=== PATIENT | female | born 1970 | race American Indian/Alaskan Native ===

== ENCOUNTER 2017-05-07 09:53 | Emergency (ER) | payer OTHER ==
[2017-05-07] MEDS ORDERED: MOTRIN PO ONE (13:57)
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
--- NOTE | 2017-05-07 15:45 | XRay Report ---
RIGHT SHOULDER, 3 VIEWS: HISTORY: right shoulder pain. Normal bone mineralization. No acute osseous injury or joint pathology is detected. The soft tissues are unremarkable. IMPRESSION: Right shoulder within normal limits.
[2017-05-07 16:07] VITALS: BP 128/82
== END 2017-05-07 16:05 | disposition home or self-care (01) ==
LOC: ED 09:53
DX: S46.911A Strain of unspecified muscle, fascia and tendon at shoulder and upper arm level, right arm, initial encounter (principal); S13.4XXA Sprain of ligaments of cervical spine, initial encounter; V49.49XA Driver injured in collision with other motor vehicles in traffic accident, initial encounter; Y93.89 Activity, other specified; Y92.89 Other specified places as the place of occurrence of the external cause; Y99.8 Other external cause status

== ENCOUNTER 2020-06-09 14:27 | Emergency (ER) | payer OTHER ==
--- NOTE | 2020-06-09 14:47 | Event Note ---
ED Screening Note ED Screening Note: Patient is a 49-year-old female presents emergency room complaints of chest tightness and shortness of breath that began a couple days ago She is currently hyperventilating and holding her chest She states that she has a mild cough Denies any fever, nausea, vomiting, diarrhea, leg swelling No sick contacts or recent travel Only family cardiac history as her father had an [place] in his 70s No past medical history No allergies to medicines This initial assessment/diagnostic orders/clinical plan/treatment(s) is/are subject to change based on patients health status, clinical progression and re- assessment by fellow clinical providers in the ED. Further treatment and workup at subsequent clinical providers discretion. Patient/guardian urged not to elope from the ED as their condition may be serious if not clinically assessed and managed. Initial orders include: Chest pain protocol
[2020-06-09 15:07] LABS: Basophils # (Auto) 0.1 K/mm3 (0.0-0.1); Basophils % (Auto) 0.9 % (0.0-1.8); Eosinophils % (Auto) 0.2 % (0.0-4.3); Hematocrit 36.1 % (30.3-42.9); Hemoglobin 12.4 gm/dl (10.1-14.3); Lymphocytes # (Auto) 1.9 K/mm3 (1.2-5.4); Lymphocytes % (Auto) 30.8 % (13.4-35.0); Mean Corpuscular HGB Conc 34 % (30-34); Mean Corpuscular Volume 78 fl (79-97); Monocytes # (Auto) 0.6 K/mm3 (0.0-0.8); Monocytes % (Auto) 9.6 % (0.0-7.3); Platelet Count 243 K/mm3 (140-440); Red Blood Count 4.63 M/mm3 (3.65-5.03); Red Cell Distribution Width 12.2 % (13.2-15.2)
[2020-06-09 15:16] LABS: INR 0.94 (0.87-1.13)
[2020-06-09 15:17] LABS: Partial Thromboplastin Time 33.7 Sec. (24.2-36.6)
[2020-06-09 15:24] LABS: Alanine Aminotransferase 20 units/L (7-56); Blood Urea Nitrogen 7 mg/dL (7-17); Calcium 8.9 mg/dL (8.4-10.2); Hemolysis Index 8
[2020-06-09 15:33] LABS: BUN/Creatinine Ratio 12
--- NOTE | 2020-06-09 15:45 | XRay Report ---
CHEST 2 VIEWS INDICATION / CLINICAL INFORMATION: Chest Pain. COMPARISON: None available. FINDINGS: SUPPORT DEVICES: None. HEART / MEDIASTINUM: No significant abnormality. LUNGS / PLEURA: Mild increased interstitial prominence within the left lower lung. Mild increased pul monary vasculature. No pneumothorax. ADDITIONAL FINDINGS: No significant additional findings. IMPRESSION: 1. Mild increased interstitial prominence within the left lower lung could represent developing infil trate. Signer Name: Sanjay Wan MD Signed: 06/09/2020 3:40 PM Workstation Name: [id number]
--- NOTE | 2020-06-09 17:18 | Emergency Department Report ---
ED Chest Pain HPI - General Chief Complaint: Chest Pain Stated Complaint: NECK/BACK CHEST PAIN PUI?: Yes Time Seen by Provider: 06/09/20 14:45 Source: patient Mode of arrival: Ambulatory Limitations: No Limitations - History of Present Illness Initial Comments: Chief complaint: "I thought I had a really bad chest cold." HPI: This is a 49-year-old female without significant past medical history who presents with symptoms for the past week. Patient had cough subjective fever chills. She had headache and body aches. For the past 2 days she has severe chest pain with cough and shortness of breath. Nonproductive cough. Sharp central pain radiating to the back reproducible with inspiration and cough. Patient also has mild headache and neck pain. Patient works as a intermodal truck driver. No known sick contacts. Patient lives with her brother. Complaint: chest pain -: Gradual, days(s) (Worse over the last 2 days), week(s) (1) Onset: during rest Pain Location: substernal Pain Radiation: back Severity: severe Severity scale (0 -10): 9 Quality: sharp Consistency: constant Improves With: nothing Worsens With: inspiration, other (cough) Other Symptoms: cough, other (Subjective fever chills body ache headache neck pain shortness of breath) - Related Data Previous Rx's Medication Instructions Recorded Last Taken Type Cyclobenzaprine [Flexeril] 10 mg PO QHS PRN #7 tablet 05/07/17 Unknown Rx Ibuprofen [Motrin] 600 mg PO Q8H PRN #30 tablet 05/07/17 Unknown Rx Azithromycin [Zithromax TAB] 250 mg PO QDAY 4 Days #4 tablet 06/09/20 Unknown Rx Ibuprofen [Motrin 400 MG tab] 400 mg PO TID 4 Days #12 tablet 06/09/20 Unknown Rx Allergies Allergy/AdvReac Type Severity Reaction Status Date / Time No Known Allergies Allergy Verified 06/09/20 14:39 Heart Score - HEART Score History: Slightly suspicious EKG: Normal Age: < 45 Risk factors: No known risk factors Troponin: < normal limit HEART Score: 0 ED Review of Systems ROS: Stated complaint: NECK/BACK CHEST PAIN Other details as noted in HPI Comment: All other systems reviewed and negative Constitutional: chills, fever, malaise Respiratory: shortness of breath. denies: cough Cardiovascular: chest pain Gastrointestinal: denies: abdominal pain, nausea, vomiting Musculoskeletal: back pain ED Past Medical Hx - Past Medical History Previous Medical History?: No - Surgical History Past Surgical History?: No Additional Surgical History: hysterectomy - Social History Smoking Status: Never Smoker Substance Use Type: Non Opiate Pain - Medications Home Medications: Home Medications Medication Instructions Recorded Confirmed Last Taken Type Cyclobenzaprine [Flexeril] 10 mg PO QHS PRN #7 tablet 05/07/17 Unknown Rx Ibuprofen [Motrin] 600 mg PO Q8H PRN #30 tablet 05/07/17 Unknown Rx Azithromycin [Zithromax TAB] 250 mg PO QDAY 4 Days #4 tablet 06/09/20 Unknown Rx Ibuprofen [Motrin 400 MG tab] 400 mg PO TID 4 Days #12 tablet 06/09/20 Unknown Rx ED Physical Exam - General Limitations: No Limitations General appearance: alert, in no apparent distress, anxious, other (anxious, speaking full word sentences, appears slightly uncomfortable) - Head Head exam: Present: atraumatic, normocephalic - Eye Eye exam: Present: normal appearance - ENT ENT exam: Present: mucous membranes moist - Neck Neck exam: Present: normal inspection, full ROM - Respiratory Respiratory exam: Present: normal lung sounds bilaterally. Absent: respiratory distress, wheezes, rales, rhonchi - Cardiovascular Cardiovascular Exam: Present: normal rhythm, tachycardia, normal heart sounds. Absent: systolic murmur, diastolic murmur, rubs, gallop - GI/Abdominal GI/Abdominal exam: Present: soft, normal bowel sounds. Absent: distended, tenderness, guarding, rebound - Extremities Exam Extremities exam: Present: normal inspection - Neurological Exam Neurological exam: Present: alert, oriented X3 - Psychiatric Psychiatric exam: Present: normal affect, anxious - Skin Skin exam: Present: warm, dry, intact, normal color. Absent: rash ED Course Vital Signs 06/09/20 06/09/20 06/09/20 14:44 18:39 18:43 Temperature 99.1 F 99.2 F Pulse Rate 112 H 118 H Respiratory 26 H 18 22 Rate Blood Pressure 129/94 Blood Pressure 132/92 [Left] O2 Sat by Pulse 96 96 Oximetry ED Medical Decision Making - Lab Data Result diagrams: 06/09/20 14:47 06/09/20 14:47 - EKG Data -: EKG Interpreted by Me EKG shows normal: sinus rhythm, axis, intervals, QRS complexes, ST-T waves Rate: normal - EKG Data 06/09/20 17:18 EKG obtained EKG interpreted by me Normal sinus rhythm normal rate normal axis normal intervals no ST elevation no ST-T signs of ischemia normal EKG - Radiology Data Radiology results: report reviewed Chest radiograph: Impression mild increased interstitial prominence within the left lower lobe could represent developing infiltrate CTA CHEST WITH CONTRAST INDICATION / CLINICAL INFORMATION: CP, SOB, elevated d-dimer. TECHNIQUE: Axial CT images were obtained through the chest after injection of IV contrast. 3 plane MIP and/or 3D reconstructions were produced. All CT scans at this location are performed using CT dose reduction for ALARA by means of automated exposure control. COMPARISON: Chest radiograph from the same date. FINDINGS: PULMONARY ARTERIES: No pulmonary emboli. THORACIC AORTA: No significant abnormality. HEART: No significant abnormality. CORONARY ARTERIES: No significant calcification. MEDIASTINUM / LIZA: No significant abnormality. PLEURA: No pleural effusion. No pneumothorax. LUNGS: Patchy, predominantly peripheral groundglass density changes throughout the lungs are concerning for an infectious process. There is airspace consolidation within the lung bases. ADDITIONAL FINDINGS: None. UPPER ABDOMEN: There is a 1.9 cm hypodensity within the right hepatic lobe. SKELETAL STRUCTURES: No significant osseous abnormality. IMPRESSION: 1. No CT evidence for pulmonary embolism. 2. Diffuse patchy groundglass density changes are concerning for a viral or atypical infectious process. 3. Indeterminate 1.9 cm right hepatic lobe hypodensity likely reflects a cyst. If there is clinical concern, multiphase CT or MRI could be performed. - Medical Decision Making Constellation of symptoms: Fever chills headache cough chest pain body aches suspicious for COVID-19 infection. No hypoxia or significant work of breathing. With elevated D-dimer and tachycardia pleuritic chest pain PE ruled out with CT angio chest: Chest radiograph and CTA revealed pneumonia. Patient is currently appropriate for discharge. Normal oxygen saturation. She understands return precautions. She understands to obtained outpatient COVID-19 testing. She understands to quarantine self isolate for the next 7 days. Critical care attestation.: If time is entered above; I have spent that time in minutes in the direct care of this critically ill patient, excluding procedure time. ED Disposition Clinical Impression: Suspected COVID-19 virus infection, Community acquired pneumonia Disposition: DC- TO HOME OR SELFCARE Is pt being admited?: No Does the pt Need Aspirin: No Condition: Stable Instructions: Bacterial Pneumonia (ED), COVID-19 Prescriptions: Ibuprofen [Motrin 400 MG tab] 400 mg PO TID 4 Days #12 tablet Azithromycin [Zithromax TAB] 250 mg PO QDAY 4 Days #4 tablet Referrals: INES BERNABE MD [Staff Physician] - 3-5 Days Forms: Work/School Release Form(ED)
[2020-06-09] MEDS ORDERED: AZITHROMYCIN 250 MG TAB PO ONE (17:20)
[2020-06-09] MEDS ORDERED: IBUPROFEN 800 MG TAB PO ONE (17:20)
--- NOTE | 2020-06-09 18:34 | Cat Scan Report ---
CTA CHEST WITH CONTRAST INDICATION / CLINICAL INFORMATION: CP, SOB, elevated d-dimer. TECHNIQUE: Axial CT images were obtained through the chest after injection of IV contrast. 3 plane MIP and/or 3D reconstructions were produced. All CT scans at this location are performed using CT dose reduction f or ALARA by means of automated exposure control. COMPARISON: Chest radiograph from the same date. FINDINGS: PULMONARY ARTERIES: No pulmonary emboli. THORACIC AORTA: No significant abnormality. HEART: No significant abnormality. CORONARY ARTERIES: No significant calcification. MEDIASTINUM / LIZA: No significant abnormality. PLEURA: No pleural effusion. No pneumothorax. LUNGS: Patchy, predominantly peripheral groundglass density changes throughout the lungs are concerni ng for an infectious process. There is airspace consolidation within the lung bases. ADDITIONAL FINDINGS: None. UPPER ABDOMEN: There is a 1.9 cm hypodensity within the right hepatic lobe. SKELETAL STRUCTURES: No significant osseous abnormality. IMPRESSION: 1. No CT evidence for pulmonary embolism. 2. Diffuse patchy groundglass density changes are concerning for a viral or atypical infectious proce ss. 3. Indeterminate 1.9 cm right hepatic lobe hypodensity likely reflects a cyst. If there is clinical c oncern, multiphase CT or MRI could be performed. Signer Name: Serge Rivera MD Signed: 06/09/2020 6:30 PM Workstation Name: [id number]
[2020-06-09 18:44] VITALS: BP 132/92
== END 2020-06-09 20:00 | disposition home or self-care (01) ==
LOC: ED 14:27
DX: J18.8 Other pneumonia, unspecified organism (principal); Z20.822 Contact with and (suspected) exposure to COVID-19; Z90.710 Acquired absence of both cervix and uterus; Z79.899 Other long term (current) drug therapy
CPT/HCPCS: 36415; 71046; 71275; 80053; 83880; 84484; 84703; 85025; 85379; 85610; 85730; 99284; Q9967